=== PATIENT | male | born 1975 | race Caucasian/White ===

== ENCOUNTER 2025-03-20 21:20 | Emergency (ER) | payer OTHER ==
[2025-03-20] MEDS ORDERED: Droperidol 5 MG/2 ML VIAL ONE ×2 (21:36→22:17)
[2025-03-20] MEDS ORDERED: diphenhydrAMINE 50 MG/ML VIAL ONE (21:36)
[2025-03-20 21:56] LABS: #Basophils Less than 0.03 10x3/uL (0.0-0.2); #Eosinophils 0.12 10x3/uL (0.0-0.5); #Monocytes 0.41 10x3/uL (0.0-1.1); #Neutrophils 4.66 10x3/uL (1.5-8.4); %Basophils 0.4 % (0.0-2.0); %Eosinophils 2.1 % (0.0-6.0); %Lymphocytes 7.8 % (18.0-47.0); %Monocytes 7.2 % (0.0-10.0); %Neutrophils 82.3 % (40.0-75.0); Hematocrit 29.9 % (38.8-50.0); Hemoglobin 10.7 g/dL (13.5-17.5); Mean Corpuscular Hemoglobin 29.8 pg (27.0-33.0); Mean Corpuscular Volume 83.3 fL (81.2-95.1); Platelet Count 194 10x3/uL (150-450); Red Blood Cell (RBC) Count 3.59 10x6/uL (4.32-5.72); White Blood Cell (WBC) Count 5.66 10x3/uL (3.5-10.5)
[2025-03-20 22:03] LABS: Actual Bicarbonate (HCO3v) 23.4 mEq/L (22-28); Analyzer IN Cardio CS ER; Base Excess 1.5 mEq/L (-2 - +2); Calcium, Ionized (venous) 0.80 mmol/L (1.16-1.32); Chloride (VBG) 78 mmol/L (98-106); Hematocrit-VBG 34 % (42.0-52.0); Hemoglobin (Hb) 11.7 g/dL (13.1-17.2); Potassium (VBG) 3.64 mmol/L (3.70-5.30); Puncture Site Other Site; RapidComm Collect By lab; Sodium 113 mmol/L (133-146)
[2025-03-20 22:11] LABS: Magnesium 1.8 mg/dL (1.6-2.6)
[2025-03-20 22:16] LABS: Troponin I Less than 0.010 ng/mL (< 0.028)
[2025-03-20 23:04] LABS: Cocaine Metabolite Screen Negative (Negative); THC/Cannabinoid Screen Negative (Negative); Tricyclic Screen Negative (Negative)
[2025-03-21 03:20] LABS: ALT (SGPT) 20 U/L (Less than 45); AST (SGOT) 30 U/L (11-34); Albumin 4.4 g/dL (3.1-4.5); Alkaline Phosphatase 51 U/L (40-110); Anion Gap 18 mmol/L (10-20); BUN (Urea Nitrogen) 15 mg/dL (8.4-25.7); Bilirubin, Total 1.2 mg/dL (0.3-1.2); Calc. Creatinine Clearance 0 mL/min (70-130); Calcium 8.0 mg/dL (7.8-10.44); Carbon Dioxide 25 mmol/L (22-29); Chloride 79 mmol/L (98-107); Globulin 3.4 g/dL (2.4-3.5); Glucose 105 mg/dL (70-105); Potassium 3.4 mmol/L (3.5-5.1)
[2025-03-21 03:26] LABS: Sodium 119 mmol/L (136-145)
== END 2025-03-21 10:58 | disposition short-term general hospital (02) ==
LOC: EEVIPCON 21:20 → CSHERS 21:20
DX: R41.82 Altered mental status, unspecified (principal); E87.1 Hypo-osmolality and hyponatremia; J44.9 Chronic obstructive pulmonary disease, unspecified; I11.0 Hypertensive heart disease with heart failure; I50.9 Heart failure, unspecified; I25.2 Old myocardial infarction; Z79.899 Other long term (current) drug therapy; Z79.82 Long term (current) use of aspirin; Z79.51 Long term (current) use of inhaled steroids; Z87.891 Personal history of nicotine dependence
CPT/HCPCS: 36415; 70450; 80053; 80306; 80307; 82140; 82805; 83605; 83735; 83880; 84484; 85025; 96374; 96375; J1200; J1790

== ENCOUNTER 2025-04-03 12:34 | Emergency (ER) | payer OTHER ==
[2025-04-03 13:15] LABS: #Basophils Less than 0.03 10x3/uL (0.0-0.2); #Eosinophils 0.21 10x3/uL (0.0-0.5); #Monocytes 0.27 10x3/uL (0.0-1.1); #Neutrophils 3.07 10x3/uL (1.5-8.4); %Basophils 0.2 % (0.0-2.0); %Eosinophils 5.1 % (0.0-6.0); %Lymphocytes 14.0 % (18.0-47.0); %Monocytes 6.5 % (0.0-10.0); %Neutrophils 74.0 % (40.0-75.0); Hematocrit 36.8 % (38.8-50.0); Hemoglobin 12.0 g/dL (13.5-17.5); Mean Corpuscular Hemoglobin 29.2 pg (27.0-33.0); Mean Corpuscular Volume 89.5 fL (81.2-95.1); Platelet Count 241 10x3/uL (150-450); Red Blood Cell (RBC) Count 4.11 10x6/uL (4.32-5.72); White Blood Cell (WBC) Count 4.15 10x3/uL (3.5-10.5)
[2025-04-03 13:34] LABS: ALT (SGPT) 16 U/L (Less than 45); AST (SGOT) 28 U/L (11-34); Albumin 4.1 g/dL (3.1-4.5); Alkaline Phosphatase 56 U/L (40-110); Anion Gap 15 mmol/L (10-20); BUN (Urea Nitrogen) 18 mg/dL (8.4-25.7); Bilirubin, Total 0.4 mg/dL (0.3-1.2); Calc. Creatinine Clearance 0 mL/min (70-130); Calcium 8.3 mg/dL (7.8-10.44); Carbon Dioxide 33 mmol/L (22-29); Chloride 98 mmol/L (98-107); Globulin 3.2 g/dL (2.4-3.5); Glucose 102 mg/dL (70-105); Potassium 3.5 mmol/L (3.5-5.1); Sodium 142 mmol/L (136-145)
[2025-04-03 13:39] LABS: Troponin I 0.010 ng/mL (< 0.028)
[2025-04-03] MEDS ORDERED: Acetaminophen 500 MG TAB ONE (14:55)
[2025-04-03 15:45] LABS: Troponin I 0.013 ng/mL (< 0.028)
== END 2025-04-03 16:00 ==
LOC: EEVIPCON 12:34 → CSHERS 12:34
DX: R07.89 Other chest pain (principal); I11.0 Hypertensive heart disease with heart failure; I50.9 Heart failure, unspecified; I25.2 Old myocardial infarction; J44.9 Chronic obstructive pulmonary disease, unspecified; I25.10 Atherosclerotic heart disease of native coronary artery without angina pectoris; Z87.891 Personal history of nicotine dependence; Z79.82 Long term (current) use of aspirin; Z79.51 Long term (current) use of inhaled steroids; Z79.899 Other long term (current) drug therapy
CPT/HCPCS: 36415; 71045; 80053; 83880; 84484; 85025; 93005

== ENCOUNTER 2025-06-12 15:54 | Emergency (ER) | payer OTHER ==
[2025-06-12] MEDS ORDERED: HYDROcodone/Acetaminophen 5/325 mg Tablet ONE (16:24)
[2025-06-12] MEDS ORDERED: Ibuprofen 200 MG TAB ONE (16:25)
== END 2025-06-12 17:07 ==
LOC: EEVIPCON 15:54 → CSHERS 15:54
DX: S62.336A Displaced fracture of neck of fifth metacarpal bone, right hand, initial encounter for closed fracture (principal); I25.2 Old myocardial infarction; I25.10 Atherosclerotic heart disease of native coronary artery without angina pectoris; J44.9 Chronic obstructive pulmonary disease, unspecified; I11.0 Hypertensive heart disease with heart failure; I50.9 Heart failure, unspecified; Z87.891 Personal history of nicotine dependence; W22.8XXA Striking against or struck by other objects, initial encounter
CPT/HCPCS: 29125; 99283